=== PATIENT | female | born 1970 | race Caucasian/White ===

== ENCOUNTER 2024-12-26 10:49 | Emergency (ER) | payer SELFPAY ==
[2024-12-26 10:52] VITALS: BP 126/88
[2024-12-26 13:01] LABS: Hematocrit 35.8 % (37.0-47.0); Hemoglobin 12.0 g/dL (12.0-16.0); Mean Corp Hgb Conc. 33.5 g/dL (33.0-37.0); Mean Corpuscular Volume 89.7 fL (81.0-99.0); Nucleated Red Blood Cells % 0 %; Platelet Count 225 10^3/uL (130-400); Red Cell Dist. Width 12.6 % (11.5-14.5)
--- NOTE | 2024-12-26 13:08 | ED.GENMED ---
Addendum entered and electronically signed by Dayanna Blakely DO 12/26/24 14:15:
Update:
14:10 -note was prematurely signed. Labs unremarkable. No anemia, no electrolyte abnormalities. Patient hemodynamically stable and stable for discharge from a medical perspective. Patient seen by crisis, recommending outpatient partial therapy.
Patient and mother are in agreement. No criteria for commitment. Feel stable for discharge. Resources provided.
Original Note:
History of Present Illness
General
Chief Complaint: Crisis Evaluation
Time Seen by Provider: 12/26/24 11:10
History of Present Illness
History of Present Illness:
54-year-old female with reported history of depression, anemia, arthritis presenting for increased depressive symptoms. Patient lives with mother, who notes that patient has been more hopeless. She has been laying in bed and reporting that she
does not want to be here anymore. Patient herself denies specific suicidal ideations. Denies homicidal ideations. She also has financial stresses, is homeless. Also notes issues with her health. She has not been able to follow-up rheumatology
and recently ran out of her Adderall. Notes generalized pain in her body. Denies specific additional acute medical complaints
Past History
Past History
ED Past Medical History: Other (Lupus, Anemia)
Social History
Tobacco: Non-smoker
Alcohol: None
Personal: Single
Living: with family
Phy Exam
Physical Exam
Physical Exam:
General: Well-appearing, no clinical signs of dehydration, nontoxic and in no acute distress
HEENT: protecting airway
Neck: appears supple
CV: Normal heart rate
Resp: No accessory muscle use, no increased work of breathing
Abd: No distention
Extremities: No deformities, no swelling
Neuro: alert, no focal neurologic deficit
: deferred
Rectal: deferred
Psych: Normal affect
Skin: Intact
Course
Orders/Labs/Results
Orders:
Orders
12/26/24 10:59
1:1 Observation - Suicide/ Violent Behavior As Directed
12/26/24 11:21
Crisis Consult Urgent
Reason for Consult: SI
12/26/24 12:21
Urinalysis Reflex To Culture Urgent
Urine Drug Abuse Screen Urgent
12/26/24 12:39
Alcohol Urgent
Complete Blood Count/With Diff Urgent
Comprehensive Metabolic Panel Urgent
Abnormal Lab Results
12/26/24
12:39
RBC 3.99 L 10^6/uL
(4.20-5.40)
Hct 35.8 L %
(37.0-47.0)
MPV 10.9 H fL
(7.4-10.4)
12/26/24 12:39
Vital Signs
Initial and Last Documented VS:
Initial Vital Signs
Temp Pulse Resp BP Pulse Ox
98.2 F 98 18 126/88 100
12/26/24 10:52 12/26/24 10:52 12/26/24 10:52 12/26/24 10:52 12/26/24 10:52
Last Documented Vital Signs
Temp Pulse Resp BP Pulse Ox
98.2 F 98 18 126/88 100
12/26/24 10:52 12/26/24 10:52 12/26/24 10:52 12/26/24 10:52 12/26/24 13:10
MDM/Problems Addressed
MDM/Problems Addressed:
54-year-old female with reported history of lupus, arthritis, anxiety, depression, and anemia presenting to the emergency department for increased depressive thoughts. Vital signs are normal.
On exam patient is resting comfortably, no acute distress. Patient references multiple chronic medical issues including autoimmune disease and iron deficiency anemia. However, no significant follow-up with specialists, so unclear of true
diagnoses. Will screen with laboratory analysis regarding patient's anemia, otherwise hemodynamically stable, nontoxic, without indication for advanced medical workup. From a mental health perspective, does appear depressed without specific
suicidal thoughts intention. Patient appears helpless. Does not appear to be a present threat to herself. Will consult with crisis.
*Pulse Oximetry
SaO2: 100
Oxygen Mode of Delivery: Room air
Patient hypoxic: no
*Critical Care Note
Total Time (30-74mins, 75-104mins- exclusive of procedures): Not Applicable
ED Attending Note
-
Portions of this chart may have been created with voice recognition software.� Occasional wrong word or��sound alike� substitutions may have occurred due to the inherent limitations of voice recognition software.
Discharge Plan
Departure
Referrals:
NONE,* [Family Provider, Internal Medicine]
Interventions
Interventions:
*Risk Screen - Suicide Last Done: 12/26/24 10:52
*General Assessment Last Done: 12/26/24 11:21
*Neglect/Abuse Screening Last Done: 12/26/24 11:21
*ED- Fall Risk Assessment Last Done: 12/26/24 11:21
*ED COVID-19 Vaccine History Last Done: 12/26/24 11:22
ED-Psychological Assessment Last Done: 12/26/24 11:21
Discharge Date and Time
Print Language: LAO
[2024-12-26 13:19] LABS: ALT (SGPT) 15 U/L (0-35); AST (SGOT) 20 U/L (14-36); Albumin 4.2 g/dl (3.5-5.0); Alkaline Phosphatase 67 U/L (38-126); Blood Urea Nitrogen 12 mg/dl (7-17); Calcium 9.2 mg/dl (8.4-10.2); Carbon Dioxide 25 mmol/L (22-30); Chloride 107 mmol/L (98-107); Glucose 85 mg/dl (70-99); Potassium 3.8 mmol/L (3.5-5.1); Sodium 138 mmol/L (135-145); Total Protein 6.9 g/dl (6.3-8.2); eGFR > 60.00
== END 2024-12-26 15:54 | disposition home or self-care (01) ==
LOC: EMR 10:49
PROVIDERS: EMERGENCY PHYSICIAN Student in an Organized Health Care Education/Training Program
DX: F32.A Depression, unspecified (principal); Z86.2 Personal history of diseases of the blood and blood-forming organs and certain disorders involving the immune mechanism; Z59.86 Financial insecurity; Z59.00 Homelessness unspecified
CPT/HCPCS: 99283; 80053; 82077; 85025